=== PATIENT | male | born 1970 | race Hispanic/Latino ===

== ENCOUNTER 2017-04-10 11:36 | Emergency (ER) | payer OTHER ==
[2017-04-10 12:23] LABS: Basophils % (Auto) 0.3 % (0.0-1.8); Eosinophils % (Auto) 1.1 % (0.0-4.3); Hematocrit 58.4 % (35.5-45.6); Hemoglobin 19.1 gm/dl (11.8-15.2); Mean Corpuscular HGB Conc 33 % (32-34); Mean Corpuscular Volume 79 fl (84-94); Platelet Count 334 K/mm3 (140-440); Red Blood Count 7.39 M/mm3 (3.65-5.03); Red Cell Distribution Width 15.8 % (13.2-15.2); White Blood Count 11.5 K/mm3 (4.5-11.0)
[2017-04-10 12:24] LABS: Mean Corpuscular Hemoglobin 26 pg (28-32)
[2017-04-10] MEDS ORDERED: MORPHINE IV ONE ×2 (12:34→15:50)
--- NOTE | 2017-04-10 12:40 | XRay Report ---
AP CHEST: HISTORY: chest pain AP view of the chest demonstrates a normal mediastinal and cardiac contour with clear lungs and normal bony and soft tissue structures. 2-lead pacemaker device is in position. IMPRESSION: Unremarkable AP chest.
[2017-04-10 12:44] LABS: Blood Urea Nitrogen 26 mg/dL (9-20); Calcium 9.9 mg/dL (8.4-10.2); Carbon Dioxide 19 mmol/L (22-30); Chloride 102.2 mmol/L (98-107); Glucose 131 mg/dL (75-100); Sodium 141 mmol/L (137-145)
--- NOTE | 2017-04-10 12:56 | Emergency Department Report ---
HPI - General Chief Complaint: Chest Pain Time Seen by Provider: 04/10/17 12:14 - HPI HPI: This is a 46-year-old male presents to emergency department from home with complaint of a 2 day history of some intermittent chest pain. He also has some associated shortness of breath, generalized weakness, palpitations and some paresthesias within the hands. The chest pain is midsternal and left- sided. Patient feels weak as if he does not want to get out of bed and even spending energy to watch television, just lay there. He has a past medical history of coronary artery disease with NE back in January 2015. He has a pacemaker but no stents. He has a history of hypertension. He also says that he had an episode yesterday where he passed out and twisted his left knee. He goes to urgent care for primary care needs. He used to see Dr. Kayleigh Gentile for cardiology but has not seen her since he lost his insurance. No recent travel or sick contacts at home. ED Past Medical Hx - Past Medical History Previous Medical History?: Yes Hx Hypertension: Yes Hx Heart Attack/AMI: Yes - Surgical History Past Surgical History?: Yes Hx Pacemaker: Yes Additional Surgical History: knees, right shoulder, jaw - Social History Smoking Status: Former Smoker Substance Use Type: None - Medications Home Medications: Home Medications Medication Instructions Recorded Confirmed Last Taken Type Acetaminophen/Codeine [Tylenol 1 tab PO Q6H PRN #15 tab 04/10/17 Unknown Rx /Codeine # 3 tab] ED Review of Systems ROS: Stated complaint: CHEST PAIN Other details as noted in HPI Comment: All other systems reviewed and negative Constitutional: denies: chills, fever Eyes: denies: eye pain, eye discharge, vision change ENT: denies: ear pain, throat pain Respiratory: shortness of breath. denies: cough Cardiovascular: chest pain, palpitations, syncope Gastrointestinal: denies: abdominal pain, nausea, diarrhea Genitourinary: denies: urgency, dysuria Musculoskeletal: denies: back pain, joint swelling, arthralgia Skin: denies: rash, lesions Neurological: paresthesias. denies: headache, weakness Physical Exam - Physical Exam Vital Signs: Vital Signs 04/10/17 11:45 Temperature 98.5 F Pulse Rate 135 H Respiratory 26 H Rate Blood Pressure 144/106 O2 Sat by Pulse 98 Oximetry Physical Exam: GENERAL: The patient is well-developed well-nourished. HENT: Normocephalic. Atraumatic. Patient has moist mucous membranes. EYES: Extraocular motions are intact. Pupils equal reactive to light bilaterally. NECK: Supple. Trachea is midline. CHEST/LUNGS: Clear to auscultation. There is no respiratory distress noted. Chest pain is not reproducible to palpation of the chest wall. HEART/CARDIOVASCULAR: Regular. There is no tachycardia. There is no gallop rub or murmur. ABDOMEN: Abdomen is soft, nontender. Patient has normal bowel sounds. There is no abdominal distention. SKIN: Skin is warm and dry. NEURO: The patient is awake, alert, and oriented. The patient is cooperative. The patient has no focal neurologic deficits. The patient has normal speech. MUSCULOSKELETAL: There is no tenderness or deformity. There is no limitation range of motion. There is no evidence of acute injury. ED Course Vital Signs 04/10/17 11:45 Temperature 98.5 F Pulse Rate 135 H Respiratory 26 H Rate Blood Pressure 144/106 O2 Sat by Pulse 98 Oximetry ED Medical Decision Making - Lab Data Result diagrams: 04/10/17 12:10 04/10/17 12:10 - EKG Data -: EKG Interpreted by Me EKG shows normal: sinus rhythm, axis, intervals, QRS complexes, ST-T waves ( nonspecific ST-T waves) Rate: tachycardia (135 bpm) - EKG Data When compared to previous EKG there are: previous EKG unavailable Interpretation: nonspecific ST-T wave marshall (with moderate tachycardia at 135 bpm) - Radiology Data Radiology results: image reviewed interpreted by me: Chest x-ray does not show any acute process. There are no pleural effusions, obvious pneumonia and there is no pneumothorax. - Medical Decision Making 46-year-old male with a history of coronary artery disease and previous NE presents with chest pain, palpitations, shortness of breath and tachycardia. EKG does not show any signs of ST elevation NE. First troponin negative. Negative d-dimer. Chest x-ray does not show any acute process. However the patient has not had a full cardiac workup in a while if ever and will be presented to the admitting hospitalist for consideration of admission. - Differential Diagnosis NE, PE, Costochondritis, Pneumonia, CHF Critical Care Time: No Critical care attestation.: If time is entered above; I have spent that time in minutes in the direct care of this critically ill patient, excluding procedure time. ED Disposition Clinical Impression: Palpitations Chest pain Qualifiers: Chest pain type: unspecified Qualified Code(s): R07.9 - Chest pain, unspecified Dyspnea Qualifiers: Dyspnea type: shortness of breath Qualified Code(s): R06.02 - Shortness of breath; R06.00 - Dyspnea, unspecified; R06.01 - Orthopnea Disposition: TO HOME OR SELFCARE Is pt being admited?: Yes Condition: Stable Instructions: Chest Pain (ED) Prescriptions: Acetaminophen/Codeine [Tylenol /Codeine # 3 tab] 1 tab PO Q6H PRN #15 tab PRN Reason: Pain Referrals: PRIMARY CARE,MD [Primary Care Provider] - 3-5 Days
--- NOTE | 2017-04-10 13:04 | XRay Report ---
LEFT KNEE, 3 views: History: Left knee pain. Normal bone mineralization. Moderate tricompartmental osteoarthritic changes are identified. Small joint effusion. No bone lesion or fracture is detected. IMPRESSION: Osteoarthritic changes. Small joint effusion. No acute process noted.
[2017-04-10 14:14] LABS: Anion Gap 22 mmol/L; Potassium 4.1 mmol/L (3.6-5.0)
[2017-04-10] MEDS ORDERED: BABY ASPIRIN PO ONE (15:50)
[2017-04-10 17:47] LABS: Urine Drugs of Abuse Note Disclamer
[2017-04-10 18:00] LABS: Bacteria,Urine 1+ /HPF (Negative); Bilirubin,Urine NEG (Negative); Blood,Urine NEG (Negative); Ketones,Urine NEG (Negative); Leukocyte Esterase,Urine NEG (Negative); Mucus,Urine 2+ /HPF; Nitrite,Urine NEG (Negative); Urobilinogen,Urine < 2.0 mg/dL (<2.0); WBC,Urine < 1.0 /HPF (0.0-6.0)
[2017-04-10] MEDS ORDERED: SODIUM BICARBONATE 50 MEQ in NACL 0.9% 1000 ML 1,000 ML IV SCH (18:00)
--- NOTE | 2017-04-10 18:59 | History and Physical Report ---
Medications and Allergies Allergies Allergy/AdvReac Type Severity Reaction Status Date / Time No Known Allergies Allergy Verified 04/10/17 11:48 Active Meds: Active Medications Sodium Bicarbonate 50 meq/ (Sodium Chloride) 1,050 mls @ 0 mls/hr IV DIRECT MOON Exam - Constitutional Vitals: Temp Pulse Resp BP Pulse Ox 98.5 F 121 H 18 123/83 97 04/10/17 11:45 04/10/17 15:31 04/10/17 16:20 04/10/17 15:31 04/10/17 15:31 Results - Labs CBC & Chem 7: 04/10/17 12:10 04/10/17 12:10 Labs: Abnormal lab results 04/10/17 04/10/17 Range/Units 12:10 12:10 WBC 11.5 H (4.5-11.0) K/mm3 RBC 7.39 H (3.65-5.03) M/mm3 Hgb 19.1 H (11.8-15.2) gm/dl Hct 58.4 H (35.5-45.6) % MCV 79 L (84-94) fl MCH 26 L (28-32) pg RDW 15.8 H (13.2-15.2) % Gillespie % (Auto) 8.7 H (0.0-7.3) % Gillespie # 1.0 H (0.0-0.8) K/mm3 Carbon Dioxide 19 L (22-30) mmol/L BUN 26 H (9-20) mg/dL Glucose 131 H (75-100) mg/dL
[2017-04-10 19:08] VITALS: BP 117/85
== END 2017-04-10 19:35 | disposition home or self-care (01) ==
LOC: ED 11:36
DX: R06.02 Shortness of breath (principal); R00.2 Palpitations; R07.9 Chest pain, unspecified; I10 Essential (primary) hypertension; Z87.891 Personal history of nicotine dependence; I25.2 Old myocardial infarction
CPT/HCPCS: 36415; 71010; 73562; 80048; 80307; 81001; 84484; 85025; 85379; 93005; 93010; 96374; 96375; 99284; J2270; J7030